=== PATIENT | female | born 1975 | race African-American/Black ===

== ENCOUNTER 2016-03-18 17:32 | Emergency (ER) | payer BC ==
[2016-03-18 17:37] VITALS: BP 115/74; PULSE 81; TEMP 97.8; BMI 29.2
[2016-03-18] MEDS ORDERED: METOCLOPRAMIDE HCL INJECTION 10 MG/2 ML VIAL ONE (18:16)
--- NOTE | 2016-03-18 18:17 | PDOC ---
History of Present Illness - History of Present Illness Initial Comments: 03/18/16 18:36 The patient is a 40 year old female, with a significant past medical history of migraines and seasonal allergies, who presents to the emergency department with a migraine, nasal congestion, and nausea for about 4 days. She states she was seen at a clinic a couple of days ago. The patient states she was treated with imitrex and fluoroset, which she states did not resolve her symptoms as well as Excedrin Migraine. The patient attributed her nasal congestion to her allergies. She states her primary care physician is out of practice at this time and she is need of a new PCP. She denies chest pain, shortness of breath, and dizziness. She denies fever, chills, vomit, diarrhea and constipation. She denies dysuria, frequency, urgency and hematuria. Allergies: NKDA <Josselin Alexander - Last Filed: 03/18/16 18:36> <Mela Lambert - Last Filed: 03/18/16 19:43> - General Chief Complaint: Headache Stated Complaint: MIGRAINE HEADACHE Time Seen by Provider: 03/18/16 17:53 Past History <Josselin Alexander - Last Filed: 03/18/16 18:36> - Past Medical History Other medical history: migraines - Psycho/Social/Smoking Cessation Hx Anxiety: No Suicidal Ideation: No Smoking History: Never smoked Have you smoked in the past 12 months: No Information on smoking cessation initiated: No Hx Alcohol Use: No Drug/Substance Use Hx: No <Mela Lambert - Last Filed: 03/18/16 19:43> - Past Medical History Allergies/Adverse Reactions: Allergies Allergy/AdvReac Type Severity Reaction Status Date / Time No Known Allergies Allergy Verified 03/18/16 17:33 Home Medications: Ambulatory Orders Fluticasone Prop 0.05% Nasal [Flonase -] 1 - 2 spray NS BID PRN #1 spray.pump Ibuprofen [Motrin -] 800 mg PO TID PRN #12 tablet 03/18/16 Pseudoephedrine HCl [Nasal Decongestant] 30 mg PO DAILY PRN #10 tablet 03/18/16 Review of Systems - Review of Systems Able to Perform ROS?: Yes Comments:: 03/18/16 18:36 CONSTITUTIONAL: Absent: fever, chills, diaphoresis, generalized weakness, malaise, loss of appetite HEENT: Absent: rhinorrhea, nasal congestion, throat pain, throat swelling, difficulty swallowing, mouth swelling, ear pain, eye pain, visual Changes CARDIOVASCULAR: Absent: chest pain, syncope, palpitations, irregular heart rate, lightheadedness , peripheral edema RESPIRATORY: Absent: cough, shortness of breath, dyspnea with exertion, orthopnea, wheezing, stridor, hemoptysis GASTROINTESTINAL: (+) nausea, Absent: abdominal pain, abdominal distension,vomiting, diarrhea, constipation, melena, hematochezia GENITOURINARY: Absent: dysuria, frequency, urgency, hesitancy, hematuria, flank pain, genital pain MUSCULOSKELETAL: Absent: myalgia, arthralgia, joint swelling SKIN: Absent: rash, itching, pallor HEMATOLOGIC/IMMUNOLOGIC: Absent: easy bleeding, easy bruising, lymphadenopathy, frequent infections ENDOCRINE: Absent: unexplained weight gain, unexplained weight loss, heat intolerance, cold intolerance NEUROLOGIC: (+) headache, Absent: focal weakness or paresthesias, dizziness, unsteady gait, seizure, mental status changes, bladder or bowel incontinence PSYCHIATRIC: Absent: anxiety, depression, suicidal or homicidal ideation, hallucinations. <Josselin Alexander - Last Filed: 03/18/16 18:36> *Physical Exam - Vital Signs Last Vital Signs Temp Pulse Resp BP Pulse Ox 97.8 F 81 18 115/74 100 03/18/16 17:34 03/18/16 17:34 03/18/16 17:34 03/18/16 17:34 03/18/16 17:34 - Physical Exam Comments: 03/18/16 18:38 GENERAL: Well developed, well nourished. Awake and alert. No acute distress. HEENT: Normocephalic, atraumatic. PERRLA, EOMI. No conjunctival pallor. Sclera are non- icteric. Moist mucous membranes. Oropharynx is clear. NECK: Supple. Full ROM. No JVD. Carotid pulses 2+ and symmetric, without bruits. No thyromegaly. No lymphadenopathy. CARDIOVASCULAR: Regular rate and rhythm. No murmurs, rubs, or gallops. Distal pulses are 2+ and symmetric. PULMONARY: No evidence of respiratory distress. Lungs clear to auscultation bilaterally. No wheezing, rales or rhonchi. ABDOMINAL: Soft. Non-tender. Non-distended. No rebound or guarding. No organomegaly. Normoactive bowel sounds. MUSCULOSKELETAL Normal range of motion at all joints. No bony deformities or tenderness. No CVA tenderness. EXTREMITIES: No cyanosis. No clubbing. No edema. No calf tenderness. SKIN: Warm and dry. Normal capillary refill. No rashes. No jaundice. NEUROLOGICAL: Alert, awake, appropriate. Cranial nerves 2-12 intact. Normoreflexic in the upper and lower extremities. Normal speech. Toes are down-going bilaterally. Gait is normal without ataxia. PSYCHIATRIC: Cooperative. Good eye contact. Appropriate mood and affect. <Josselin Alexander - Last Filed: 03/18/16 18:36> - Vital Signs Last Vital Signs Temp Pulse Resp BP Pulse Ox 97.8 F 81 18 115/74 100 03/18/16 17:34 03/18/16 17:34 03/18/16 17:34 03/18/16 17:34 03/18/16 17:34 <Mela Lambert - Last Filed: 03/18/16 19:43> ED Treatment Course - Medications Given in the ED: ED Medications Discontinued Medications Generic Name Dose Route Start Last Admin Trade Name Damiánq PRN Reason Stop Dose Admin Diphenhydramine HCl 25 mg 03/18/16 18:18 03/18/16 18:30 Benadryl Injection - IVPUSH 03/18/16 18:19 25 mg ONCE ONE Administration Metoclopramide HCl 10 mg 03/18/16 18:18 03/18/16 18:24 Reglan Injection - IVPUSH 03/18/16 18:19 10 mg ONCE ONE Administration <Josselin Alexander - Last Filed: 03/18/16 18:36> *DC/Admit/Observation/Transfer - Attestations Scribe Attestion: 03/18/16 18:39 Documentation prepared by Josselin Alexander, acting as medical insurance verifier for Mela Lambert MD <Josselin Alexander - Last Filed: 03/18/16 18:36> <Mela Lambert - Last Filed: 03/18/16 19:43> Diagnosis at time of Disposition: Nasal congestion, Sinus headache - Discharge Dispostion Disposition: HOME Condition at time of disposition: Stable - Prescriptions Prescriptions: Fluticasone Prop 0.05% Nasal [Flonase -] 1 - 2 spray NS BID PRN #1 spray.pump PRN Reason: Nasal Congestion Ibuprofen [Motrin -] 800 mg PO TID PRN #12 tablet PRN Reason: Headache Pseudoephedrine HCl [Nasal Decongestant] 30 mg PO DAILY PRN #10 tablet PRN Reason: Nasal Congestion - Patient Instructions Printed Discharge Instructions: DI for Sinus Headache Additional Instructions: please olive picker your prescriptions at [facility] Return for worsening symptoms
[2016-03-18] MEDS ORDERED: METOCLOPRAMIDE HCL INJECTION 10 MG/2 ML VIAL IVPUSH ONE (18:18)
[2016-03-18] MEDS ORDERED: KETOROLAC TROMETHAMINE 30 MG/1 ML VIAL IVPUSH ONE (18:21)
[2016-03-18 18:22] LABS: URINE APPEARANCE CLEAR; URINE BILIRUBIN NEGATIVE (NEGATIVE); URINE COLOR LTYELLOW; URINE GLUCOSE (UA) NEGATIVE (NEGATIVE); URINE KETONE NEGATIVE (NEGATIVE); URINE NITRITE NEGATIVE (NEGATIVE); URINE PROTEIN NEGATIVE (NEGATIVE); URINE UROBILINOGEN NEGATIVE E.U./dl (0.2-1.0)
[2016-03-18] MEDS ORDERED: SODIUM CHLORIDE 1,000 ML IV STA (18:22)
[2016-03-18] MEDS ORDERED: KETOROLAC TROMETHAMINE 30 MG/1 ML VIAL ONE (19:04)
[2016-03-18 19:05] LABS: URINE BLOOD 3+ (NEGATIVE); URINE LEUK ESTERASE TRACE (NEGATIVE)
[2016-03-18 19:09] LABS: URINE MUCUS RARE; URINE RBC 1 /hpf (0-3); URINE WBC 3 /hpf (3-5)
== END 2016-03-18 19:54 | disposition home or self-care (01) ==
LOC: JER 17:32
PROC: 3E033GC Introduction of Other Therapeutic Substance into Peripheral Vein, Percutaneous Approach (ICD-10-PCS; principal; 2016-03-18)
PROC: 3E033GC Introduction of Other Therapeutic Substance into Peripheral Vein, Percutaneous Approach (ICD-10-PCS; 2016-03-18)
PROC: 3E0337Z Introduction of Electrolytic and Water Balance Substance into Peripheral Vein, Percutaneous Approach (ICD-10-PCS; 2016-03-18)
DX: R51 Headache (principal); R09.81 Nasal congestion; J30.2 Other seasonal allergic rhinitis
CPT/HCPCS: 81003; 81015; 84703; 99283-25

== ENCOUNTER 2023-03-28 00:31 | Emergency (ER) | payer BC ==
[2023-03-28 00:44] VITALS: BP 114/75; PULSE 91; RESP 18; TEMP 98.5; BMI 30.9
== END 2023-03-28 01:26 | disposition home or self-care (01) ==
LOC: JER 00:31
DX: H10.9 Unspecified conjunctivitis (principal); H57.89 Other specified disorders of eye and adnexa
CPT/HCPCS: 99283-25